=== PATIENT | male | born 1955 | race Caucasian/White ===

== ENCOUNTER 2025-05-10 06:59 | Emergency (ER) | payer MEDICARE ==
[~2025-05-10] VITALS: Ht 180.3 cm; Wt 102.7 kg
[2025-05-10] MEDS: TRAMADOL HCL 50 MG TAB PO ONE (07:29)
[2025-05-10] MEDS ORDERED: ULTRAM 50MG50 MG PO (08:06)
[2025-05-10 08:17] VITALS: PULSE 74; RESP 16; TEMP 98; O2SAT 97
== END 2025-05-10 08:17 | disposition home or self-care (01) ==
LOC: FSED 07:03
DX: M25.561 Pain in right knee (principal); S82.091A Other fracture of right patella, initial encounter for closed fracture; W22.8XXA Striking against or struck by other objects, initial encounter; Y92.89 Other specified places as the place of occurrence of the external cause
CPT/HCPCS: 99284